=== PATIENT | male | born 1985 ===

== ENCOUNTER 2020-08-29 20:14 | Emergency (ER) | payer OTHER ==
[2020-08-29] MEDS ORDERED: Lidocaine 1% 20 ML MDV INFILT ONE (20:15)
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
== END 2020-08-29 21:07 | disposition home or self-care (01) ==
LOC: FB.ED 20:14
DX: S91.011A Laceration without foreign body, right ankle, initial encounter (principal); W26.8XXA Contact with other sharp object(s), not elsewhere classified, initial encounter
CPT/HCPCS: 12001; 99282-25